=== PATIENT | female | born 1950 | race Caucasian/White ===

== ENCOUNTER → 2020-04-14 13:12 | Outpatient (CLI) | payer MEDICARE, OTHER, SELFPAY ==
--- NOTE | ~2020-04-14 | DEXA_ITS ---
Bone Density Report Name: Catherine Yip Age: 69 Sex: Female Ethnicity: White Date of : 1950 Indication: osteopenia; monitoring treatment; inflammatory bowel disease; postmenopausal Referring Provider: STANFORD REYNA Study: Bone densitometry was performed. Exam Date: April 14, 2020 Accession number: [id number] Bone Density: Region BMD T-score Z-score Classification AP Spine (L1-L4) 0.946 -0.9 1.0 Normal Femoral Neck (Left) 0.673 -1.6 0.1 Osteopenia Total Hip (Left) 0.796 -1.2 0.2 Osteopenia Femoral Neck (Right) 0.580 -2.4 -0.8 Osteopenia Total Hip (Right) 0.697 -2.0 -0.6 Osteopenia Total Hip Mean 0.747 -1.6 -0.2 Osteopenia World Health Organization criteria for BMD impression classify patients as: Normal (T-score at or above -1.0), Osteopenia (T-score between -1.0 and -2.5), or Osteoporosis (T-score at or below -2.5). 10-year Fracture Risk: FRAX not reported because: Treated for osteoporosis Previous Exams: Region Exam Age BMD T-score BMD Change BMD Change Date g/cm2 vs Baseline vs Previous AP Spine(L1-L4) 04/14/2020 69 0.946 -0.9 0.060* 0.024* 06/14/2017 66 0.923 -1.1 0.037* 0.001 05/04/2015 64 0.921 -1.1 0.035* 0.035* 12/19/2010 60 0.886 -1.5 Total Hip(Left) 04/14/2020 69 0.796 -1.2 0.051* 0.014 06/14/2017 66 0.783 -1.3 0.038* -0.008 05/04/2015 64 0.790 -1.2 0.046* 0.046* 12/19/2010 60 0.745 -1.6 Total Hip(Right) 04/14/2020 69 0.697 -2.0 -0.008 -0.022 06/14/2017 66 0.719 -1.8 0.014 0.000 05/04/2015 64 0.719 -1.8 0.014 0.014 12/19/2010 60 0.705 -1.9 *Denotes significance at 95% confidence level, LSC for AP Spine = 0.022 g/cm2, LSC for Total Hip = 0.027 g/cm2 Clinical Information Provided by Patient: Is being treated for osteoporosis Has used the following medications: Fosamax (i.e. alendronate), Vitamin D Has the following medical conditions: Inflammatory bowel diseases Patient maximum height was 64.5 Menopause Age: 59 Drinks caffeinated beverages Onset of menses at age 16 Number of children 2 Impression: The patient has low bone mass, based on the Right Femoral Neck T-score. No significant bone loss was observed. Discussion: PATIENT UNDER TREATMENT WITH NO SIGNIFICANT BMD LOSS SINCE LAST EXAM. In an un
--- NOTE | ~2020-04-14 | MM_ITS ---
EXAMINATION: MM scrn lou implant BI w matthew HISTORY: Screening mammogram TECHNIQUE: Craniocaudal and mediolateral oblique 3-D tomosynthesis images with implant displacement a nd synthetic 2-D images were generated. Craniocaudal and mediolateral oblique views of the breasts wi thout implant displacement were obtained using full field digital mammography. CAD analysis was submi tted and interpreted. COMPARISON: 07/24/2018, 06/14/2017, 04/2616 bilateral implant digital screening mammogram examination s BREAST PARENCHYMAL COMPOSITION: The breasts are heterogeneously dense, which may obscure small masses . FINDINGS: Status post bilateral augmentation mammoplasty. There is no evidence of suspicious mass, ca lcification, or architectural distortion to suggest malignancy in either breast. There has been no lowry spicious interval change. IMPRESSION: 1. No mammographic evidence of malignancy. 2. Recommend routine screening mammography in one year. BI-RADS Category 1: Negative Reviewed, dictated and finalized at location A.
== END ==
PROVIDERS: Visit Provider Obstetrics & Gynecology
DX: Z12.31 Encounter for screening mammogram for malignant neoplasm of breast (principal); Z78.0 Asymptomatic menopausal state; M85.852 Other specified disorders of bone density and structure, left thigh; M85.851 Other specified disorders of bone density and structure, right thigh
CPT/HCPCS: 77063; 77067; 77080

== ENCOUNTER → 2022-01-19 08:19 | Outpatient (CLI) | payer MEDICARE, OTHER, SELFPAY ==
--- NOTE | ~2022-01-19 | US_ITS ---
EXAMINATION: US soft tissue pelvic DATE: 01/19/2022 08:47 INDICATION: Lumps the left side of the mons pubis TECHNIQUE: Multiple grayscale and Doppler ultrasound images of the region of concern at the left groi n were obtained. COMPARISON: None FINDINGS: The palpable abnormality of concern appears to correspond to a small fat-containing left inguinal her jeniffer extending through a 1.1 x 0.7 cm hypoechoic orifice. Herniated fat within measured longitudinally along the convexity inguinal canal measures 3.3 x 1.3 cm. No evident herniated bowel. Instantly note d normal sized 7 x 4 mm left inguinal lymph node. IMPRESSION: 1. Small fat-containing left inguinal hernia. Reviewed, dictated and finalized at location B.
== END ==
PROVIDERS: Visit Provider Nurse Practitioner
DX: K40.90 Unilateral inguinal hernia, without obstruction or gangrene, not specified as recurrent (principal)
CPT/HCPCS: 76857

== ENCOUNTER → 2022-05-04 09:33 | Outpatient (CLI) | payer MEDICARE, OTHER, SELFPAY ==
--- NOTE | ~2022-05-04 | DEXA_ITS ---
Bone Density Report Name: Catherine Yip Age: 71 Sex: Female Ethnicity: White Date of : 1950 Indication: osteopenia; monitoring treatment; height loss; inflammatory bowel disease; postmenopausal Referring Provider: DEVIN, RADHA Huertas Study: Bone densitometry was performed. Exam Date: May 04, 2022 Accession number: [id number] Bone Density: Region BMD T-score Z-score Classification AP Spine (L1-L4) 0.976 -0.6 1.4 Normal Femoral Neck (Left) 0.689 -1.4 0.3 Osteopenia Total Hip (Left) 0.773 -1.4 0.1 Osteopenia Femoral Neck (Right) 0.556 -2.6 -0.9 Osteoporosis Total Hip (Right) 0.697 -2.0 -0.5 Osteopenia Total Hip Mean 0.735 -1.7 -0.2 Osteopenia World Health Organization criteria for BMD impression classify patients as: Normal (T-score at or above -1.0), Osteopenia (T-score between -1.0 and -2.5), or Osteoporosis (T-score at or below -2.5). 10-year Fracture Risk: FRAX not reported because: Some T-score for Spine Total or Hip Total or Femoral Neck at or below -2.5 Treated for osteoporosis Previous Exams: Region Exam Age BMD T-score BMD Change BMD Change Date g/cm2 vs Baseline vs Previous AP Spine(L1-L4) 05/04/2022 71 0.976 -0.6 0.090* 0.030* 04/14/2020 69 0.946 -0.9 0.060* 0.024* 06/14/2017 66 0.923 -1.1 0.037* 0.001 05/04/2015 64 0.921 -1.1 0.035* 0.035* 12/19/2010 60 0.886 -1.5 Total Hip(Left) 05/04/2022 71 0.773 -1.4 0.029* -0.023 04/14/2020 69 0.796 -1.2 0.051* 0.014 06/14/2017 66 0.783 -1.3 0.038* -0.008 05/04/2015 64 0.790 -1.2 0.046* 0.046* 12/19/2010 60 0.745 -1.6 Total Hip(Right) 05/04/2022 71 0.697 -2.0 -0.007 0.000 04/14/2020 69 0.697 -2.0 -0.008 -0.022 06/14/2017 66 0.719 -1.8 0.014 0.000 05/04/2015 64 0.719 -1.8 0.014 0.014 12/19/2010 60 0.705 -1.9 *Denotes significance at 95% confidence level, LSC for AP Spine = 0.022 g/cm2, LSC for Total Hip = 0.027 g/cm2 Clinical Information Provided by Patient: Is being treated for osteoporosis Has used the following medications: Fosamax (i.e. alendronate), Vitamin D Has the following medical conditions: Inflammatory bowel diseases Patient maximum height was 65 Menopause Age: 59 Drinks caffeinated beverages Onset of menses at age 16 Number of children 2
== END ==
PROVIDERS: Visit Provider Nurse Practitioner
DX: Z78.0 Asymptomatic menopausal state (principal); M85.852 Other specified disorders of bone density and structure, left thigh; M81.0 Age-related osteoporosis without current pathological fracture
CPT/HCPCS: 77080

== ENCOUNTER → 2022-05-05 13:14 | Outpatient (CLI) | payer MEDICARE, OTHER, SELFPAY ==
--- NOTE | ~2022-05-05 | MM_ITS ---
EXAMINATION: MM scrn lou implant BI w matthew HISTORY: Screening mammogram TECHNIQUE: Craniocaudal and mediolateral oblique 3-D tomosynthesis images with implant displacement a nd synthetic 2-D images were generated. Craniocaudal and mediolateral oblique views of the breasts wi thout implant displacement were obtained using full field digital mammography. CAD analysis was submi tted and interpreted. COMPARISON: 04/14/2020, 07/24/2018, 06/14/2017 BREAST PARENCHYMAL COMPOSITION: The breasts are heterogeneously dense, which may obscure small masses . FINDINGS: There is no evidence of suspicious mass, calcification, or architectural distortion to sugg est malignancy in either breast. There has been no suspicious interval change. There is bilateral malena ast implant rupture. IMPRESSION: 1. No mammographic evidence of malignancy. 2. Recommend routine screening mammography in one year. BI-RADS Category 1: Negative Reviewed, dictated and finalized at location A.
== END ==
PROVIDERS: Visit Provider Nurse Practitioner
DX: Z12.31 Encounter for screening mammogram for malignant neoplasm of breast (principal)
CPT/HCPCS: 77063; 77067

== ENCOUNTER → 2023-09-04 11:17 | Outpatient (CLI) | payer MEDICARE, OTHER, SELFPAY ==
--- NOTE | ~2023-09-04 | MM_ITS ---
EXAMINATION: MM scrn lou implant BI w matthew HISTORY: Screening mammogram TECHNIQUE: Craniocaudal and mediolateral oblique 3-D tomosynthesis images with implant displacement a nd synthetic 2-D images were generated. Craniocaudal and mediolateral oblique views of the breasts wi thout implant displacement were obtained using full field digital mammography. CAD analysis was submi tted and interpreted. COMPARISON: 05/05/2022, 04/14/2020, 07/24/2018 bilateral implant screening mammogram examinations BREAST PARENCHYMAL COMPOSITION: The breasts are heterogeneously dense, which may obscure small masses . FINDINGS: Status post bilateral augmentation mammoplasty. There is no evidence of suspicious mass, ca lcification, or architectural distortion to suggest malignancy in either breast. There has been no lowry spicious interval change. IMPRESSION: 1. No mammographic evidence of malignancy. 2. Recommend routine screening mammography in one year. BI-RADS Category 1: Negative Reviewed, dictated and finalized at location A. EDGER
== END ==
PROVIDERS: PCP Obstetrics & Gynecology; Visit Provider Nurse Practitioner
DX: Z12.31 Encounter for screening mammogram for malignant neoplasm of breast (principal)
CPT/HCPCS: 77063; 77067

== ENCOUNTER 2024-09-24 12:17 | Outpatient (CLI) | payer MEDICARE, OTHER, SELFPAY ==
--- NOTE | ~2024-09-24 | MM_ITS ---
EXAMINATION: MM scrn lou implant BI w matthew HISTORY: Screening mammogram TECHNIQUE: Craniocaudal and mediolateral oblique 3-D tomosynthesis images with implant displacement a nd synthetic 2-D images were generated. Craniocaudal and mediolateral oblique views of the breasts wi thout implant displacement were obtained using full field digital mammography. CAD analysis was submi tted and interpreted. COMPARISON: 09/04/2023, 05/05/2022, 04/14/2020 BREAST PARENCHYMAL COMPOSITION: There are scattered areas of fibroglandular density. FINDINGS: There is no evidence of suspicious mass, calcification, or architectural distortion to sugg est malignancy in either breast. There has been no suspicious interval change. Probable bilateral ext racapsular implant rupture, unchanged. IMPRESSION: No mammographic evidence of malignancy. Recommend routine screening mammography in one year. BI-RADS Category 1: Negative Reviewed, dictated and finalized at [facility]. LEUM TILE FLOOR LAYER
== END 2024-09-24 12:18 | disposition home or self-care (01) ==
PROVIDERS: PCP Nurse Practitioner; Visit Provider Nurse Practitioner
DX: Z12.31 Encounter for screening mammogram for malignant neoplasm of breast (principal)
CPT/HCPCS: 77063; 77067